=== PATIENT | male | born 1955 | race Caucasian/White ===

== ENCOUNTER 2017-11-21 09:50 | Day surgery (SDC) | payer OTHER ==
[~2017-11-21 09:50] MED LIST: PROPOFOL 200 MG INJ
[2017-11-21 11:23] LABS: ADD MAN DIFF? NO
[2017-11-21 11:25] LABS: BASOPHIL # 0.1 10^3/ul (0.0-0.1); EOSINOPHILS # 0.3 10^3/ul (0.0-0.5); EOSINOPHILS % 5.2 % (0.0-7.0); HEMOGLOBIN 14.2 g/dl (14.0-18.0); LYMPHOCYTES # 1.4 10^3/ul (0.8-2.9); LYMPHOCYTES % 27.5 % (15.0-51.0); MEAN CORPUSCULAR HEMOGLOBIN 30.1 pg (29.0-33.0); MEAN CORPUSCULAR HGB CONC 33.8 g/dl (32.0-37.0); MEAN CORPUSCULAR VOLUME 89.2 fl (82.0-101.0); MEAN PLATELET VOLUME 9.7 fl (7.4-10.4); MONOCYTE # 0.4 10^3/ul (0.3-0.9); MONOCYTES % 8.5 % (0.0-11.0); NEUTROPHILS % 57.6 % (39.0-77.0); PLATELET COUNT 277 10^3/UL (140-415); RED BLOOD COUNT 4.71 10^6/ul (4.70-6.10); RED CELL DISTRIBUTION WIDTH 13.1 % (11.5-14.5)
[2017-11-21 11:25] LABS: WHITE BLOOD COUNT 5.2 10^3/ul (4.8-10.8)
[2017-11-21] MEDS: SOD CHLORIDE 0.9% 1,000 ML IV (11:31)
[2017-11-21 11:39] LABS: ALANINE AMINOTRANSFERASE 34 IU/L (13-69); ALBUMIN 3.8 g/dl (3.3-4.9); ALBUMIN/GLOBULIN RATIO 1.15; ALKALINE PHOSPHATASE 54 IU/L (42-121); ANION GAP 11 (8-16); ASPARTATE AMINO TRANSFERASE 28 IU/L (15-46); BILIRUBIN,INDIRECT 0.6 mg/dl (0-1.1); BILIRUBIN,TOTAL 0.6 mg/dl (0.2-1.3); BLOOD UREA NITROGEN 10 mg/dl (7-20); CALCIUM 9.3 mg/dl (8.4-10.2); CARBON DIOXIDE 27 mmol/L (21-31); CHLORIDE 108 mmol/L (97-110); CREATININE 0.74 mg/dl (0.61-1.24); GLUCOSE 99 mg/dl (70-220); POTASSIUM 4.4 mmol/L (3.5-5.1); SODIUM 142 mmol/L (135-144); TOTAL PROTEIN 7.1 g/dl (6.1-8.1)
[2017-11-21 11:44] LABS: INR 0.84; PROTIME 11.6 Sec (11.9-14.9); PT RATIO 0.9
[2017-11-21 12:24] LABS: PARTIAL THROMBOPLASTIN TIME 24.3 Sec (25.0-35.0)
[2017-11-21] MEDS ORDERED: MIDAZOLAM 1 MG/ML 2 ML INJ (12:59)
[2017-11-21] MEDS: CEFAZOLIN 2 GM/50 ML (PMX) 50 ML IVPB (13:00)
[2017-11-21] MEDS ORDERED: HYDROmorphONE 1 MG/5 ML IV SYRINGE IV (13:00)
[2017-11-21] MEDS ORDERED: FENTAnyl 50 MCG/ML VIAL IV (13:00)
[2017-11-21] MEDS ORDERED: DIPHENHYDRAMINE 50 MG INJ IV (13:00)
[2017-11-21] MEDS: BUPIVACAINE 0.25% (MPF) 30 ML INJ (13:21)
[2017-11-21] MEDS: POLYMYXIN/BACITRACIN 1L IRRIG (13:22)
[2017-11-21] MEDS ORDERED: ROCURONIUM 50 MG INJ (13:57)
[2017-11-21] MEDS ORDERED: NEOSTIGMINE 3 MG/3 ML SYRINGE (13:57)
[2017-11-21] MEDS ORDERED: LIDOCAINE 2% (SDV) 5 ML INJ (13:57)
[2017-11-21] MEDS ORDERED: ETOMIDATE 20 MG INJ (13:57)
[2017-11-21] MEDS ORDERED: CEFAZOLIN 1 GM INJ (13:57)
[2017-11-21] MEDS ORDERED: GLYCOPYRROLATE 0.4 MG INJ (13:57)
[2017-11-21] MEDS ORDERED: ONDANSETRON 4 MG INJ (13:58)
[2017-11-21] MEDS ORDERED: HYDROCODONE/APAP (5/325) TAB PO (14:00)
[2017-11-21] MEDS: ONDANSETRON 4 MG INJ IV (14:36)
[2017-11-21] MEDS: MEPERIDINE 25 MG INJ IV (14:36)
[2017-11-21] MEDS: HYDROmorphONE 1 MG/5 ML IV SYRINGE IV (14:37)
[2017-11-21] MEDS: METOCLOPRAMIDE 10 MG INJ IV (17:08)
[2017-11-21] MEDS ORDERED: SCOPOLAMINE 1.5 MG PATCH TRANSDERM (17:30)
== END 2017-11-21 17:51 | disposition home or self-care (01) ==
LOC: SDS 09:50
DX: K40.30 Unilateral inguinal hernia, with obstruction, without gangrene, not specified as recurrent (principal); Z87.891 Personal history of nicotine dependence
CPT/HCPCS: 49507; 71045; 80053; 85025; 85610; 85730; 93005